=== PATIENT | female | born 1995 | race Caucasian/White ===

== ENCOUNTER 2020-03-17 15:36 | Emergency (ER) | payer OTHER ==
[2020-03-17 15:41] VITALS: BP 119/67; PULSE 78; TEMP 98.1; BMI 21.1
[2020-03-17] MEDS ORDERED: ACETAMINOPHEN 500 MG TABLET (FP) PO ONE (16:00)
== END 2020-03-17 16:29 | disposition home or self-care (01) ==
LOC: JERFT 15:36
DX: R51.9 Headache, unspecified (principal)
CPT/HCPCS: 84703; 99283-25

== ENCOUNTER 2020-06-12 12:30 | Emergency (ER) | payer OTHER ==
[2020-06-12 12:49] VITALS: BP 121/79; PULSE 83; TEMP 97.9; BMI 20.5
[2020-06-12] MEDS ORDERED: RABIES IMMUNE GLOBULIN 300 UNITS/1 ML VIAL IM ONE (13:23)
[2020-06-12] MEDS ORDERED: RABIES VACCINE (PCEC)/PF 2.5 UNIT/VIAL IM ONE ×2 (13:23→13:51)
[2020-06-12] MEDS ORDERED: BACITRACIN 15 GM TUBE TOPICAL OINTMENT TP ONE (13:30)
[2020-06-12] MEDS ORDERED: BACITRACIN 15 GM TUBE TOPICAL OINTMENT ONE (13:51)
== END 2020-06-12 14:46 | disposition home or self-care (01) ==
LOC: JERFT 12:30
PROC: 3E0234Z Introduction of Serum, Toxoid and Vaccine into Muscle, Percutaneous Approach (ICD-10-PCS; principal; 2020-06-12)
DX: S61.451A Open bite of right hand, initial encounter (principal)
CPT/HCPCS: 90375; 90675; 99284-25

== ENCOUNTER 2020-06-15 10:26 | Emergency (ER) | payer OTHER ==
[2020-06-15 10:41] VITALS: BP 101/59; PULSE 86; TEMP 97.5; BMI 20.5
[2020-06-15] MEDS ORDERED: RABIES VACCINE (PCEC)/PF 2.5 UNIT/VIAL IM ONE ×2 (11:10→11:16)
== END 2020-06-15 11:51 | disposition home or self-care (01) ==
LOC: JERFT 10:26
PROC: 3E0234Z Introduction of Serum, Toxoid and Vaccine into Muscle, Percutaneous Approach (ICD-10-PCS; principal; 2020-06-15)
DX: Z29.14 Encounter for prophylactic rabies immune globulin (principal)
CPT/HCPCS: 90675; 99284-25

== ENCOUNTER 2020-06-19 11:38 | Emergency (ER) | payer OTHER ==
[2020-06-19 11:51] VITALS: BP 124/53; PULSE 98; TEMP 98.1; BMI 20.5
[2020-06-19] MEDS ORDERED: RABIES VACCINE (PCEC)/PF 2.5 UNIT/VIAL IM ONE ×3 (11:54→11:56)
== END 2020-06-19 12:10 | disposition home or self-care (01) ==
LOC: JERFT 11:38
PROC: 3E0234Z Introduction of Serum, Toxoid and Vaccine into Muscle, Percutaneous Approach (ICD-10-PCS; principal; 2020-06-19)
DX: Z29.14 Encounter for prophylactic rabies immune globulin (principal)
CPT/HCPCS: 90675; 99284-25